=== PATIENT | female | born 1940 | race Caucasian/White ===

== ENCOUNTER 2021-01-07 10:56 | Inpatient (IN) | payer MEDICARE, OTHER ==
[2021-01-04 11:28] LABS: BASOPHILS % 0.3 % (0.0-1.0); EOSINOPHILS # (AUTO) 0.1 (0.0-0.4); EOSINOPHILS % 0.5 % (0.0-6.0); HEMATOCRIT 46.9 % (34.2-44.1); HEMOGLOBIN 14.7 g/dL (12.0-16.0); LYMPHOCYTES # (AUTO) 1.2 (1.0-3.2); LYMPHOCYTES % 9.7 % (18.0-39.1); MEAN CORPUSCULAR HEMOGLOBIN 31.1 pg (28-32); MEAN CORPUSCULAR HGB CONC 31.3 g/dL (31-35); MEAN CORPUSCULAR VOLUME 99.4 fL (81-99); MONOCYTES # (AUTO) 0.7 (0.2-0.8); MONOCYTES % 5.3 % (4.4-11.3); NEUTROPHILS # (AUTO) 10.3 (2.1-6.9); NEUTROPHILS % 83.7 % (38.7-80.0); PLATELET COUNT 259 x10e3/uL (140-360); RED BLOOD COUNT 4.72 x10e6/uL (3.6-5.1); RED CELL DISTRIBUTION WIDTH 13.1 % (11.7-14.4)
[2021-01-04 11:42] LABS: ANION GAP 10.8 mmol/L (8-16); CALCIUM 8.7 mg/dL (8.4-10.2); CREATININE, SERUM 0.8 mg/dL (0.57-1.11); POTASSIUM 3.8 mmol/L (3.5-5.1)
[2021-01-07] VITALS (10 sets, daily range): BP systolic 120–137; BP diastolic 55–65
[~2021-01-07] VITALS: Ht 160 cm; Wt 71.2 kg
[~2021-01-07 10:56] MED LIST: ATORVASTATIN CA20 MG PO; ELIQUIS5 MG PO; NITROFURANTOIN100 MG PO; PREDNISONE5 MG/5 ML PO; SOTALOL80 MG PO; VITAMIN D350 MCG PO
[2021-01-07] MEDS ORDERED: LEVOFLOXACIN250 MG PO (11:28)
[2021-01-07] MEDS ORDERED: LEVOFLOXACIN 500MG/D5W 100ML 100 ML IV ONE (11:34)
[2021-01-07] MEDS ORDERED: GENTAMICIN 80MG/NS 100 ML 200 ML IV ONE (11:34)
[2021-01-07] MEDS ORDERED: GENTAMICIN SULFATE 40 MG/ML 2 ML VIAL ONE (12:49)
[2021-01-07] MEDS ORDERED: IOPAMIDOL 300MG/ML 50ML INFUS..BTL IV ONE (12:49)
[2021-01-07] MEDS ORDERED: BELLADONNA/OPIUM 30 MG SUPP RC ONE (12:49)
[2021-01-07] MEDS ORDERED: INDIGOTINDISULFONATE SODIUM 8 MG/ML AMP IJ ONE (12:49)
[2021-01-07] MEDS ORDERED: BUPIVACAINE 0.25% 30ML SDV ONE (12:49)
[2021-01-07] MEDS ORDERED: LIDOCAINE 1% W/EPINEPHRINE 20 ML VIAL ONE (12:49)
[2021-01-07] MEDS ORDERED: SILVER SULFADIAZINE 50GM CREAM ONE (13:15)
[2021-01-07] MEDS ORDERED: DIPHENHYDRAMINE HCL INJ 50 MG/ML VIAL IM PRN (15:30)
[2021-01-07] MEDS ORDERED: PHENAZOPYRIDINE HCL 100 MG TAB PO PRN (15:30)
[2021-01-07] MEDS ORDERED: MORPHINE SULFATE 1 MG/ML 30ML PCA IV PRN (15:30)
[2021-01-07] MEDS ORDERED: ONDANSETRON HCL INJ 2MG/ML 2ML 2 MG/ML VIAL IV PRN (15:30)
[2021-01-07] MEDS ORDERED: NALOXONE HCL INJ 0.4 MG/ML AMP IV PRN (15:30)
[2021-01-07] MEDS: SODIUM CHLORIDE 0.9% 1000ML 1,000 ML IV SCH (16:39)
[2021-01-07] MEDS ORDERED: ACETAMINOPHEN 1000 MG/100 ML IV PRN (18:00)
[2021-01-08] VITALS (10 sets, daily range): BP systolic 102–126; BP diastolic 52–72
[2021-01-08] MEDS: SODIUM CHLORIDE 0.9% 1000ML 1,000 ML IV SCH ×2 (04:00→14:25)
[2021-01-08 06:28] LABS: BASOPHILS % 0.2 % (0.0-1.0); EOSINOPHILS # (AUTO) 0.1 (0.0-0.4); EOSINOPHILS % 0.3 % (0.0-6.0); HEMOGLOBIN 13.1 g/dL (12.0-16.0); LYMPHOCYTES # (AUTO) 0.7 (1.0-3.2); MEAN CORPUSCULAR HEMOGLOBIN 31.6 pg (28-32); MONOCYTES # (AUTO) 0.8 (0.2-0.8); MONOCYTES % 4.6 % (4.4-11.3); NEUTROPHILS # (AUTO) 16.2 (2.1-6.9); NEUTROPHILS % 89.9 % (38.7-80.0); PLATELET COUNT 221 x10e3/uL (140-360); RED BLOOD COUNT 4.14 x10e6/uL (3.6-5.1)
[2021-01-08 06:50] LABS: ANION GAP 13.9 mmol/L (8-16); CALCIUM 8.3 mg/dL (8.4-10.2); CREATININE, SERUM 0.75 mg/dL (0.57-1.11); POTASSIUM 3.9 mmol/L (3.5-5.1)
[2021-01-08] MEDS: SOTALOL HCL 80 MG TAB PO SCH (09:00)
[2021-01-08] MEDS ORDERED: Morphine 4mg Syringe 4 MG/ML INJ IV PRN (09:00)
[2021-01-08] MEDS: PREDNISONE 5 MG/5 ML SOLN PO SCH (09:00)
[2021-01-08] MEDS ORDERED: HYDROCODONE/APAP 7.5MG-325MG 1 EA TAB PO PRN (09:00)
[2021-01-08] MEDS: LEVOFLOXACIN 250 MG TAB PO SCH (09:43)
[2021-01-08] MEDS: CHOLECALCIFEROL 1,000 UNIT TAB PO SCH (09:45)
[2021-01-08] MEDS: SENNOSIDES 8.6 MG TAB PO SCH ×2 (09:45→16:46)
[2021-01-08] MEDS ORDERED: ATORVASTATIN 20 MG TAB PO SCH (21:00)
[2021-01-09] VITALS: BP 130/70
[2021-01-09 04:00] VITALS: BP 153/84
[2021-01-09 06:00] LABS: BASOPHILS % 0.2 % (0.0-1.0); EOSINOPHILS % 0.2 % (0.0-6.0); HEMATOCRIT 37.9 % (34.2-44.1); HEMOGLOBIN 12.2 g/dL (12.0-16.0); LYMPHOCYTES # (AUTO) 2.1 (1.0-3.2); LYMPHOCYTES % 16.4 % (18.0-39.1); MEAN CORPUSCULAR HEMOGLOBIN 31.6 pg (28-32); MEAN CORPUSCULAR HGB CONC 32.2 g/dL (31-35); MEAN CORPUSCULAR VOLUME 98.2 fL (81-99); MONOCYTES # (AUTO) 0.9 (0.2-0.8); MONOCYTES % 6.8 % (4.4-11.3); NEUTROPHILS # (AUTO) 9.8 (2.1-6.9); NEUTROPHILS % 75.9 % (38.7-80.0); PLATELET COUNT 178 x10e3/uL (140-360); RED BLOOD COUNT 3.86 x10e6/uL (3.6-5.1); RED CELL DISTRIBUTION WIDTH 13.2 % (11.7-14.4)
[2021-01-09 06:40] LABS: ANION GAP 13.5 mmol/L (8-16); CALCIUM 8.3 mg/dL (8.4-10.2); CREATININE, SERUM 0.74 mg/dL (0.57-1.11); POTASSIUM 3.5 mmol/L (3.5-5.1)
[2021-01-09 07:43] VITALS: BP 146/70
[2021-01-09] MEDS ORDERED: HYDROXYZINE HCL 25 MG TAB PO PRN (08:30)
[2021-01-09] MEDS: CHOLECALCIFEROL 1,000 UNIT TAB PO SCH (09:00)
[2021-01-09] MEDS: SOTALOL HCL 80 MG TAB PO SCH (09:00)
[2021-01-09] MEDS: PREDNISONE 5 MG/5 ML SOLN PO SCH (09:00)
[2021-01-09] MEDS: SENNOSIDES 8.6 MG TAB PO SCH ×2 (09:00→17:00)
[2021-01-09] MEDS: LEVOFLOXACIN 250 MG TAB PO SCH (09:35)
[2021-01-09 09:36] VITALS: BP 146/70
[2021-01-09 11:31] VITALS: BP 111/57
[2021-01-09] MEDS: SODIUM CHLORIDE 0.9% 1000ML 1,000 ML IV SCH (11:33)
[2021-01-09] MEDS ORDERED: ONDANSETRON HCL 4 MG ORAL DISINTEGRATING TAB PO PRN (13:30)
[2021-01-09 15:17] VITALS: BP 106/52
[2021-01-09] MEDS ORDERED: ULTRAM50 MG PO (18:46)
== END 2021-01-09 19:46 | disposition home or self-care (01) | DRG 748 ==
LOC: OR 10:56 → EDSEX 13:00 → PACU V 15:40 → MED/SURG 15:50
PROVIDERS: ADMIT Internal Medicine; ATTEND Internal Medicine
PROC: 0USG0ZZ Reposition Vagina, Open Approach (ICD-10-PCS; 2021-01-07)
PROC: 0JUC0KZ Supplement of Pelvic Region Subcutaneous Tissue and Fascia with Nonautologous Tissue Substitute, Open Approach (ICD-10-PCS; principal; 2021-01-07 13:18)
DX: N81.10 Cystocele, unspecified (principal); M33.20 Polymyositis, organ involvement unspecified; E78.5 Hyperlipidemia, unspecified; I10 Essential (primary) hypertension; I48.0 Paroxysmal atrial fibrillation; N39.3 Stress incontinence (female) (male); I48.91 Unspecified atrial fibrillation; Z86.73 Personal history of transient ischemic attack (TIA), and cerebral infarction without residual deficits; Z88.0 Allergy status to penicillin; Z20.822 Contact with and (suspected) exposure to COVID-19
CPT/HCPCS: 36415; 71046; 74420; 80048; 85025; 93005; 96360; 99251; C1752; C1758; J1580; J1956; J2270; J7030; U0002